=== PATIENT | female | born 1940 | race Caucasian/White ===

== ENCOUNTER → 2016-07-04 | Outpatient (CLI) | payer OTHER | END | disposition home or self-care (01) | LOC: PCVCCLINIC 13:00 | PROVIDERS: ATTEND Internal Medicine Cardiovascular Disease | DX: I48.0 Paroxysmal atrial fibrillation (principal); I47.1 Supraventricular tachycardia; I10 Essential (primary) hypertension; E78.00 Pure hypercholesterolemia, unspecified; G47.33 Obstructive sleep apnea (adult) (pediatric); E11.9 Type 2 diabetes mellitus without complications; R07.89 Other chest pain; Z79.82 Long term (current) use of aspirin; Z87.891 Personal history of nicotine dependence; Z79.899 Other long term (current) drug therapy | CPT/HCPCS: 93005; G0463 ==

== ENCOUNTER → 2016-07-23 | Outpatient (CLI) | payer OTHER ==
--- NOTE | 2016-07-28 18:11 | PCVCIMAG ---
APPROVED REPORT Study performed: 07/23/2016 11:30:09 EXAM: Comprehensive 2D, Doppler, and color-flow Echocardiogram Patient Location: Echo lab Status: routine Other Information Study Quality: Adequate Risk Factors: Cardiac Risk Factors: HTN, Diabetes (insulin) Indications Diabetes Atrial Fibrillation Hypertension/HDD 2D Dimensions IVSd: 12.22 (7-11mm)LVOT Diam: 22.86 (18-24mm) LVDd: 57.90 mm PWd: 12.00 (7-11mm)Ascending Ao: 33.62 (22-36mm) LVDs: 28.04 (25-40mm) Left Atrium: 36.66 (27-40mm) Aortic Root: 28.24 mm LV Single Plane 4CH: 51.01 % LV Single Plane 2CH: 61.83 %Perez's LVEF: 56.42 % Biplane EF: 56.2 % Volumes Left Atrial Volume (Systole) Single Plane 4CH: 85.97 mLSingle Plane 2CH: 66.92 mL LA ESV Index: 37.00 mL/m2 Aortic Valve AoV Peak Rian.: 1.36 m/s AO Peak Gr.: 7.43 mmHgLVOT Max P.19 mmHg LVOT Max V: 0.89 m/s ZEHRA Vmax: 2.69 cm2 Mitral Valve E/A Ratio: 0.9 MV Decel. Time: 229.14 ms MV E Max Rian.: 0.92 m/s MV A Rian.: 1.03 m/s IVRT: 77.85 ms TDI E/Lateral E': 11.50E/Medial E': 13.14 Medial E' Rian.: 0.07 m/s Lateral E' Rian.: 0.08 m/s Pulmonary Valve PV Peak Rian.: 1.15 m/sPV Peak Gr.: 5.33 mmHg Pulmonary Vein P Vein S: 0.54 m/sP Vein A: 0.21 m/s P Vein D: 0.42 m/sP Vein A Dur.: 117.6 msec P Vein S/D Ratio: 1.29 Tricuspid Valve TR Peak Rian.: 2.11 m/s TR Peak Gr.: 17.84 mmHg TV Vmax: 0.70 m/s Left Ventricle Left ventricle is at the upper limits of normal. There is normal LV segmental wall motion. Mild concentric left ventricular hypertrophy. Left ventricular systolic function is normal. The left ventricular ejection fraction is within the normal range. LVEF is 60%. The left ventricular diastolic function is normal. Right Ventricle The right ventricle is normal size. The right ventricular systolic function is normal. Atria The left atrium size is normal. The right atrium size is normal. Aortic Valve The aortic valve is normal in structure. No aortic regurgitation is present. There is no aortic valvular stenosis. Mitral Valve The mitral valve is normal in structure. There is no mitral valve regurgitation noted. No evidence of mitral valve stenosis. Tricuspid Valve The tricuspid valve is normal in structure. There is no tricuspid valve regurgitation noted. Pulmonic Valve The pulmonary valve is normal in structure. Trace to mild pulmonic regurgitation. Great Vessels The aortic root is normal in size. The ascending aorta is normal in size. IVC is normal in size and collapses with >50% inspiration Pericardium There is no pericardial effusion. There is no pleural effusion. <Conclusion> Left ventricle is at the upper limits of normal. Mild concentric left ventricular hypertrophy. Left ventricular systolic function is normal. The left ventricular ejection fraction is within the normal range. LVEF is 60%. The left ventricular diastolic function is normal. The left atrium size is normal. The aortic valve is normal in structure. The mitral valve is normal in structure. There is no mitral valve regurgitation noted. There is no pericardial effusion.
== END | disposition home or self-care (01) ==
LOC: PCVCIMAG 11:12
PROVIDERS: ATTEND Internal Medicine Cardiovascular Disease
DX: I37.1 Nonrheumatic pulmonary valve insufficiency (principal); I48.91 Unspecified atrial fibrillation; E11.9 Type 2 diabetes mellitus without complications; I10 Essential (primary) hypertension
CPT/HCPCS: 93306

== ENCOUNTER → 2016-08-25 | Outpatient (CLI) | payer OTHER | END | disposition home or self-care (01) | LOC: PCVCCLINIC 09:52 | PROVIDERS: ATTEND Internal Medicine Cardiovascular Disease | DX: I48.0 Paroxysmal atrial fibrillation (principal); I10 Essential (primary) hypertension; E78.1 Pure hyperglyceridemia; G47.33 Obstructive sleep apnea (adult) (pediatric); I47.1 Supraventricular tachycardia; I87.8 Other specified disorders of veins; E11.9 Type 2 diabetes mellitus without complications; E78.5 Hyperlipidemia, unspecified; Z90.710 Acquired absence of both cervix and uterus; Z90.722 Acquired absence of ovaries, bilateral; Z79.82 Long term (current) use of aspirin; Z87.891 Personal history of nicotine dependence; Z79.899 Other long term (current) drug therapy; Z79.4 Long term (current) use of insulin; Z88.5 Allergy status to narcotic agent | CPT/HCPCS: 93005; G0463 ==

== ENCOUNTER → 2018-03-17 | Outpatient (CLI) | payer OTHER | END | disposition home or self-care (01) | LOC: PCVCCLINIC 13:30 | PROVIDERS: ATTEND Internal Medicine Cardiovascular Disease | DX: I25.10 Atherosclerotic heart disease of native coronary artery without angina pectoris (principal); I48.91 Unspecified atrial fibrillation; E78.1 Pure hyperglyceridemia; E78.00 Pure hypercholesterolemia, unspecified; E11.9 Type 2 diabetes mellitus without complications; I10 Essential (primary) hypertension; D68.59 Other primary thrombophilia; E78.5 Hyperlipidemia, unspecified; Z79.4 Long term (current) use of insulin; Z88.6 Allergy status to analgesic agent; Z87.891 Personal history of nicotine dependence | CPT/HCPCS: 36415; 80061; 93005; G0463 ==

== ENCOUNTER → 2018-09-15 | Outpatient (CLI) | payer OTHER ==
--- NOTE | 2018-09-15 10:00 | PCVCIMAG ---
APPROVED REPORT Study performed: 09/15/2018 09:00:56 EXAM: Comprehensive 2D, Doppler, and color-flow Echocardiogram Patient Location: Echo lab Room #: 2Status: routine BSA: 2.20 HR: 51 bpmBP: 130/62 mmHg Rhythm: Atrial Fibrillation Other Information Study Quality: Adequate Risk Factors: Cardiac Risk Factors: HTN, Hyperlipidemia, DM Indications Diabetes Atrial Fibrillation CAD Hypertension/HDD 2D Dimensions IVSd: 8.74 (7-11mm)LVOT Diam: 21.87 (18-24mm) LVDd: 56.47 mm PWd: 9.61 (7-11mm)Ascending Ao: 39.11 (22-36mm) LVDs: 29.10 (25-40mm) Left Atrium: 35.87 (27-40mm) Aortic Root: 32.24 mm LV Single Plane 4CH: 55.89 % LV Single Plane 2CH: 64.66 % Biplane EF: 61.0 % Volumes Left Atrial Volume (Systole) Single Plane 4CH: 110.16 mLSingle Plane 2CH: 43.05 mL Biplane LA Volume: 71.00 mLLA ESV Index: 32.00 mL/m2 Aortic Valve AoV Peak Rian.: 1.47 m/s AO Peak Gr.: 8.85 mmHgLVOT Max P.39 mmHg LVOT Max V: 0.92 m/s ZEHRA Vmax: 2.36 cm2 Mitral Valve E/A Ratio: 1.0 MV Decel. Time: 213.60 ms MV E Max Rian.: 1.00 m/s MV A Rian.: 0.98 m/s IVRT: 69.20 ms TDI E/Lateral E': 14.29E/Medial E': 16.67 Medial E' Rian.: 0.06 m/s Lateral E' Rian.: 0.07 m/s Pulmonary Valve PV Peak Rian.: 1.08 m/sPV Peak Gr.: 4.64 mmHg Pulmonary Vein P Vein S: 0.47 m/sP Vein A: 0.26 m/s P Vein D: 0.43 m/sP Vein A Dur.: 124.6 msec P Vein S/D Ratio: 1.09 Tricuspid Valve TR Peak Rian.: 2.21 m/s TR Peak Gr.: 19.56 mmHg TV Vmax: 0.55 m/sPA Pressure: 27.00 mmHg Left Ventricle The left ventricle is normal size. There is normal LV segmental wall motion. There is normal left ventricular wall thickness. Left ventricular systolic function is normal. The left ventricular ejection fraction is within the normal range. LVEF is 60-65%. Mild diastolic dysfunction is present (impaired relaxation pattern). Right Ventricle The right ventricle is normal size. The right ventricular systolic function is normal. Atria The left atrium size is normal. The right atrium size is normal. Aortic Valve Mild aortic valve sclerosis, trileaflet. No aortic regurgitation is present. There is no aortic valvular stenosis. Mitral Valve The mitral valve is normal in structure. There is no mitral valve regurgitation noted. No evidence of mitral valve stenosis. Tricuspid Valve The tricuspid valve is normal in structure. Trace to mild tricuspid regurgitation with a PA pressure of 27 mmHg. No pulmonary hypertension. Pulmonic Valve The pulmonary valve is normal in structure. Trace pulmonic regurgitation. Great Vessels The aortic root is normal in size. The ascending aorta is normal in size. Aortic arch is normal in caliber. IVC is normal in size and collapses >50% with inspiration. Pericardium There is no pericardial effusion. There is no pleural effusion. <Conclusion> Left ventricular systolic function is normal. There is normal LV segmental wall motion. LVEF is 60-65%. Mild diastolic dysfunction Mild aortic valve sclerosis, trileaflet. No aortic regurgitation or stenosis The mitral valve is normal in structure. No mitral valve regurgitation. Trace to mild tricuspid regurgitation with a pulmonary artery pressure of 27 mmHg. There is no pericardial effusion.
== END | disposition home or self-care (01) ==
LOC: PCVCIMAG 08:47
PROVIDERS: ATTEND Internal Medicine
DX: I08.2 Rheumatic disorders of both aortic and tricuspid valves (principal); I25.10 Atherosclerotic heart disease of native coronary artery without angina pectoris; E11.9 Type 2 diabetes mellitus without complications; I10 Essential (primary) hypertension; R42 Dizziness and giddiness; E78.1 Pure hyperglyceridemia; I48.0 Paroxysmal atrial fibrillation; G47.33 Obstructive sleep apnea (adult) (pediatric); I87.8 Other specified disorders of veins; D68.59 Other primary thrombophilia; R00.1 Bradycardia, unspecified; K21.0 Gastro-esophageal reflux disease with esophagitis; Z79.4 Long term (current) use of insulin; Z88.8 Allergy status to other drugs, medicaments and biological substances; Z87.891 Personal history of nicotine dependence; Z79.899 Other long term (current) drug therapy
CPT/HCPCS: 93306